=== PATIENT | female | born 1950 | race Caucasian/White ===

== ENCOUNTER 2024-03-06 11:57 | Emergency (ER) | payer MEDICARE ==
--- NOTE | 2024-03-06 12:18 | ED Physician Documentation ---
PD HPI MHE - Stated complaint Stated Complaint: MHE/LUDWIN - History obtained from History obtained from: Patient, Police - Additional information Additional information: 73-year-old female presents for mental health evaluation. 1 week ago patient states that she lost her . They had gone for a nice dinner and he went up to bed because he was feeling tired. Patient fell asleep on the couch watching TV and when she went upstairs to go to bed she found her in the bed. She states that when people came to sheepskin pickler her 's body they were concerned about the state of the animals on the property and called animal control. The commercial production editor who evaluated the animals, which include 17 dogs and 2 horses stated that the horses and several other animals would have to be euthanized due to their poor health condition. When finding out that her animals would need to be euthanized the patient said that "if you take anything else beloved from me I will have to kill myself". Patient states that she has been treating her animals with [place] herbs. 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 She believes that this has contributed to her 's . Patient states that her sister is in town to help her through her trying times and currently does not want to kill herself. Review of Systems Constitutional: denies: Fever, Chills GI: denies: Abdominal Pain, Nausea, Vomiting, Constipation, Diarrhea : denies: Dysuria, Frequency, Hesitancy Neurologic: denies: Generalized weakness, Focal weakness, Numbness Psychiatric: reports: Depressed, Suicidal. denies: Homicidal, Hallucinations, Delusions PD PAST MEDICAL HISTORY - Present Medications Home Medications: Ambulatory Orders Medication Instructions Recorded Confirmed Metoprolol Succinate [Toprol Xl] 50 mg PO DAILY #30 tablet 03/06/24 - Allergies Allergies/Adverse Reactions: Allergies Allergy/AdvReac Type Severity Reaction Status Date / Time No Known Drug Allergies Allergy Verified 03/06/24 12:26 PD ED PE NORMAL - Vitals Vital signs reviewed: Yes - General General: Alert and oriented X 3, No acute distress, Well developed/nourished - Neck Neck: Supple, no meningeal sign - Cardiac Cardiac: Strong equal pulses, Other (Tachycardia) - Respiratory Respiratory: No respiratory distress, Clear bilaterally - Abdomen Abdomen: Soft, Non tender, Non distended - Derm Derm: Normal color, Warm and dry, No rash - Extremities Extremities: No deformity, No tenderness to palpate, Normal ROM s pain - Neuro Neuro: Alert and oriented X 3, freight loader 2-12 intact, No motor deficit, Normal speech Results - Vitals Vitals: Vital Signs - 24 hr 03/06/24 03/06/24 03/06/24 12:09 13:26 13:31 Temperature 36.6 C Heart Rate 173 H 168 H 75 Respiratory 20 13 19 Rate Blood Pressure 151/101 H 146/111 H 140/95 H O2 Saturation 100 100 97 03/06/24 03/06/24 03/06/24 13:50 14:00 14:30 Temperature Heart Rate 73 74 74 Respiratory 13 21 19 Rate Blood Pressure 146/52 H 150/94 H 162/97 H O2 Saturation 100 95 99 03/06/24 15:00 Temperature Heart Rate 77 Respiratory 18 Rate Blood Pressure 155/90 H O2 Saturation 100 Oxygen O2 Source Room air - Labs Labs: Laboratory Tests 03/06/24 03/06/24 03/06/24 12:30 12:30 12:45 WBC 7.3 RBC 4.54 Hgb 11.1 L Hct 35.6 L MCV 78.4 L MCH 24.4 L MCHC 31.2 L RDW 15.1 H Plt Count 447 MPV 9.6 Neut # (Auto) 5.3 Lymph # (Auto) 1.5 [place] # (Auto) 0.4 Eos # (Auto) 0.1 Baso # (Auto) 0.1 Absolute Nucleated RBC 0.00 Nucleated RBC % 0.0 Sodium 134 L Potassium 3.8 Chloride 103 Carbon Dioxide 24 Anion Gap 7.0 BUN 17 Creatinine 0.9 Estimated GFR (MDRD) 62 L Glucose 133 H Calcium 10.3 Total Bilirubin 0.4 AST 16 ALT 14 Alkaline Phosphatase 72 Total Protein 7.9 Albumin 4.3 Globulin 3.6 Albumin/Globulin Ratio 1.2 TSH 6.39 H Urine Color YELLOW Urine Clarity HAZY Urine pH 6.0 Ur Specific [place] 1.025 Urine Protein TRACE Urine Glucose (UA) NEGATIVE Urine Ketones NEGATIVE Urine Occult Blood TRACE-LYSE Urine Nitrite NEGATIVE Urine Bilirubin NEGATIVE Urine Urobilinogen 0.2 (NORMAL) Ur Leukocyte Esterase SMALL H Urine RBC 0-5 Urine WBC 0-3 Ur Squamous Epith Cells RARE Squamous Urine Bacteria Rare Urine Mucus Few Strands Ur Microscopic Review INDICATED Urine Culture Comments INDICATED Salicylates < 1.5 Urine Opiates Screen NEGATIVE Ur Buprenorphine Scrn NEGATIVE Ur Oxycodone Screen NEGATIVE Urine Methadone Screen NEGATIVE Acetaminophen 0.1 Ur Barbiturates Screen NEGATIVE Ur Tricyclics Screen NEGATIVE Ur Phencyclidine Scrn NEGATIVE Ur Amphetamine Screen NEGATIVE U Methamphetamines Scrn NEGATIVE U Benzodiazepines Scrn NEGATIVE Urine Cocaine Screen NEGATIVE U Cannabinoids Screen NEGATIVE Ur Drug Screen Comment CUTOFF CONC BELOW: Ethyl Alcohol < 10.0 PD Medical Decision Making - ED course Complexity details: reviewed results, re-evaluated patient, considered differential, d/w patient ED course: Suicidal ideation after finding out that several of her pets would need to be euthanized. Patient states she does not want to kill herself, she was merely very stressed due to the numerous losses she has had over the last week. She states that her sister is in town and she has other animals at home that need her. Patient incidentally noted to be tachycardic and a rate of 160s on arrival. Patient states that she does not believe in traditional medications and sees a padded products finisher for all of her conditions. Laboratory work is reviewed, mild elevation in TSH, and mild anemia however electrolytes are normal and patient is negative for drugs, alcohol. Patient's tachycardia resolved with single dose of IV metoprolol. Rhythm on medical microbiologist sinus rhythm a 70 bpm. Medically cleared for DCR. DCR evaluated patient and deemed she is safe to go home. Her sister is home and can help with the patient during her time of grief. I did recommend that patient start metoprolol for her elevated pulse rate. Prescription sent to [facility]. Departure - Departure Disposition: 01 Home, Self Care Clinical Impression: Grief reaction Condition: Stable Instructions: ED Stress React Prescriptions: Metoprolol Succinate [Toprol Xl] 50 mg PO DAILY #30 tablet Comments: You did have elevated heart rate today, I recommend starting metoprolol. This has been sent to the [facility] in [place]. Forms: PCP List Discharge Date/Time: 03/06/24 17:43
[2024-03-06 12:40] LABS: BASOPHILS # (AUTO) 0.1 10^3/uL (0.0-0.1); BASOPHILS % (AUTO) 0.7 %; EOSINOPHILS # (AUTO) 0.1 10^3/uL (0.0-0.7); HCT - HEMATOCRIT 35.6 % (37.0-47.0); HGB - HEMOGLOBIN 11.1 g/dL (12.0-16.0); LYMPHOCYTES # (AUTO) 1.5 10^3/uL (1.5-3.5); LYMPHOCYTES % (AUTO) 20.1 %; MEAN CORPUSCULAR HEMOGLOBIN 24.4 pg (27.0-31.0); MEAN CORPUSCULAR HGB CONC 31.2 g/dL (32.0-36.0); MEAN CORPUSCULAR VOLUME 78.4 fL (81.0-99.0); MEAN PLATELET VOLUME 9.6 fL (7.9-10.8); MONOCYTES # (AUTO) 0.4 10^3/uL (0.0-1.0); MONOCYTES % (AUTO) 5.7 %; NEUTROPHILS # (AUTO) 5.3 10^3/uL (1.5-6.6); NEUTROPHILS % (AUTO) 72.4 %; PLT - PLATELET COUNT 447 10^3/uL (130-450); RED BLOOD COUNT 4.54 10^6/uL (4.20-5.40); RED CELL DISTRIBUTION WIDTH 15.1 % (12.0-15.0); WHITE BLOOD COUNT 7.3 x10^3/uL (4.8-10.8)
[2024-03-06 12:59] LABS: BILIRUBIN,URINE NEGATIVE (NEGATIVE); GLUCOSE, URINE (UA) NEGATIVE (NEGATIVE); KETONES,URINE (UA) NEGATIVE (NEGATIVE); LEUKOCYTE ESTERASE, URINE SMALL (NEGATIVE); NITRITE,URINE NEGATIVE (NEGATIVE); OCCULT BLOOD,URINE TRACE-LYSE (NEGATIVE); PROTEIN,URINE TRACE mg/dL (NEGATIVE); UROBILINOGEN,URINE 0.2 (NORMAL) E.U./dL (NORMAL)
[2024-03-06 13:00] LABS: ACETAMINOPHEN 0.1 ug/mL; ALBUMIN 4.3 g/dL (3.2-5.5); ALBUMIN/GLOBULIN RATIO 1.2 (1.0-2.2); ALKALINE PHOSPHATASE 72 IU/L (42-121); ALT ALANINE AMINOTRANSFERASE 14 IU/L (10-60); AST ASPARTATE AMINOTRANSFERASE 16 IU/L (10-42); BILIRUBIN,TOTAL 0.4 mg/dL (0.2-1.0); BUN - BLOOD UREA NITROGEN 17 mg/dL (6-20); CALCIUM 10.3 mg/dL (8.5-10.3); CARBON DIOXIDE - CO2 24 mmol/L (21-32); CHLORIDE 103 mmol/L (101-111); CREATININE 0.9 mg/dL (0.6-1.3); ETOH - ETHANOL < 10.0 mg/dL; GFR - MDRD 62 (>89); GLUCOSE 133 mg/dL (74-104); POTASSIUM 3.8 mmol/L (3.5-4.5); SODIUM 134 mmol/L (135-145); TOTAL PROTEIN 7.9 g/dL (6.4-8.9)
[2024-03-06 13:02] LABS: SALICYLATE < 1.5 mg/dL
[2024-03-06 13:06] LABS: CLARITY,URINE HAZY (CLEAR)
[2024-03-06 13:10] LABS: BACTERIA,URINE Rare /HPF (None Seen); MUCUS,URINE Few Strands; RBC,URINE 0-5 /HPF (0-5); SQUAMOUS EPITHELIAL CELL,UR RARE Squamous (<= Few); WBC,URINE 0-3 /HPF (0-5)
[2024-03-06 13:11] LABS: AMPHETAMINE SCREEN,URINE NEGATIVE (NEGATIVE); BARBITURATE SCREEN,UR NEGATIVE (NEGATIVE); BENZODIAZEPINES SCREEN, URINE NEGATIVE (NEGATIVE); BUPRENORPHINE SCREEN, URINE NEGATIVE (NEGATIVE); COCAINE SCREEN URINE NEGATIVE (NEGATIVE); METHADONE SCREEN, URINE NEGATIVE (NEGATIVE); METHAMPHETAMINES SCREEN, URINE NEGATIVE (NEGATIVE); OPIATE SCREEN, URINE NEGATIVE (NEGATIVE); OXYCODONE SCREEN, URINE NEGATIVE (NEGATIVE); THC CANNABINOID SCREEN, URINE NEGATIVE (NEGATIVE); TRICYCLIC ANTIDEPRESSANT,URINE NEGATIVE (NEGATIVE)
[2024-03-06] MEDS: METOPROLOL 5 MG/5 ML VIAL IVP STA (13:21)
[2024-03-06] MEDS: SODIUM CHLORIDE 0.9% 1,000 ML IV STA (13:23)
[2024-03-06 13:31] LABS: THYROID STIMULATING HORMONE 6.39 uIU/mL (0.34-5.60)
[2024-03-06] MEDS: METOPROLOL SUCCINATE 50 MG TABLET PO STA (14:48)
[2024-03-06 15:14] VITALS: BP 155/90; O2SAT 100
== END 2024-03-06 17:43 | disposition home or self-care (01) ==
LOC: ED 11:57
DX: F43.20 Adjustment disorder, unspecified (principal); R00.0 Tachycardia, unspecified
CPT/HCPCS: 36415; 80053; 80143; 80306; 81001; 84443; 85025; 87086; 93005; 96361; 96374; 99284; G0480; 80179; 81003; 82077